=== PATIENT | female | born 1985 | race African-American/Black ===

== ENCOUNTER 2022-02-14 16:06 | Emergency (ER) | payer OTHER ==
[~2022-02-14] VITALS: Ht 165.1 cm; Wt 64.4 kg
[2022-02-14 16:11] VITALS: BP 118/68
[2022-02-14] MEDS ORDERED: BACITRACIN OINTMENT 30GM TUBE TOP ONE (18:30)
[2022-02-14] MEDS ORDERED: LIDOCAINE 1% MDV 20ML VIAL SC ONE (18:30)
[2022-02-14] MEDS ORDERED: UNRESOLVED CLARIFICATION ENTRY XX ONE (18:35)
== END 2022-02-14 19:58 | disposition home or self-care (01) ==
LOC: M ED 16:06
DX: S61.210A Laceration without foreign body of right index finger without damage to nail, initial encounter (principal); S61.216A Laceration without foreign body of right little finger without damage to nail, initial encounter; W26.0XXA Contact with knife, initial encounter

== ENCOUNTER 2022-04-19 06:17 | Day surgery (SDC) | payer OTHER ==
[~2022-04-19] VITALS: Ht 165.1 cm; Wt 63.0 kg
[~2022-04-19 06:17] MED LIST: ACET-897 PO; FOLI1TAB11 PO
[2022-04-19] MEDS ORDERED: LR 1,000 ML IV SCH ×3 (06:20→10:05)
[2022-04-19] MEDS ORDERED: MIDAZOLAM INJ 2MG/2ML VIAL (J2250 PER 1MG) As Ordered ONE (07:07)
[2022-04-19] MEDS ORDERED: ONDANSETRON 4MG 2ML VIAL As Ordered ONE (07:08)
[2022-04-19] MEDS ORDERED: propofoL 200 MG/20 ML VIAL As Ordered ONE (07:08)
[2022-04-19] MEDS ORDERED: LIDOCAINE 2% 100MG/5ML SDV (FOR ANES.) As Ordered ONE (07:08)
[2022-04-19] MEDS ORDERED: KETOROLAC 60MG 2ML VIAL As Ordered ONE (07:08)
[2022-04-19] MEDS ORDERED: fentaNYL 100 MCG/2 ML INJECTION As Ordered ONE (07:09)
[2022-04-19] MEDS ORDERED: LIDOCAINE 1% MDV 20ML VIAL As Ordered ONE (07:17)
[2022-04-19] MEDS ORDERED: SILVER NITRATE APPLICATOR (1 = QTY 10) As Ordered ONE (07:17)
[2022-04-19 07:25] LABS: HEMATOCRIT 39.7 % (36.0-47.0); HEMOGLOBIN 12.8 g/dl (12.0-15.5); MEAN CORPUSCULAR HEMOGLOBIN 30.3 pg (27.0-33.0); MEAN CORPUSCULAR HGB CONC 32.2 g/dl (32.0-36.5); MEAN CORPUSCULAR VOLUME 94.1 fl (80.0-96.0); PLATELET COUNT, AUTOMATED 211 10^3/uL (150-450); RED BLOOD COUNT 4.22 10^6/uL (4.00-5.40); WHITE BLOOD COUNT 4.6 10^3/uL (4.0-10.0)
[2022-04-19 08:08] LABS: HCG, SERUM QUALITATIVE NEGATIVE (NEGATIVE)
[2022-04-19] MEDS ORDERED: fentaNYL 100 MCG/2 ML INJECTION IV PRN (09:10)
[2022-04-19] MEDS ORDERED: METOCLOPRAMIDE INJ 10MG/2ML VIAL IV PRN (09:10)
[2022-04-19] MEDS ORDERED: ONDANSETRON 4MG 2ML VIAL IV PRN (09:10)
[2022-04-19] MEDS ORDERED: oxyCODONE 5MG TAB PO PRN ×2 (09:10→10:10)
[2022-04-19 10:03] VITALS: BP 119/67
== END 2022-04-19 11:25 | disposition home or self-care (01) ==
LOC: M SDC 06:17
PROVIDERS: ATTEND Obstetrics & Gynecology
DX: D25.9 Leiomyoma of uterus, unspecified (principal); N97.9 Female infertility, unspecified
CPT/HCPCS: 36415; 58558; 84703; 85027; 86850; 86900; 86901; 88305; J1100; J1885; J2250; J2405; J3010

== ENCOUNTER → 2022-05-24 | Outpatient (REF) ==
[2022-05-24 13:22] LABS: RSV AMPLIFICATION NEGATIVE (NEGATIVE)
== END ==
LOC: M LABSMTC 11:27
PROVIDERS: ATTEND Family Medicine
DX: Z11.52 Encounter for screening for COVID-19 (principal)

== ENCOUNTER → 2022-06-19 | Outpatient (REF) | LOC: M LABSMTC 11:01 | PROVIDERS: ATTEND Family Medicine | DX: Z11.52 Encounter for screening for COVID-19 (principal) ==

== ENCOUNTER → 2022-06-22 | Outpatient (CLI) | payer OTHER ==
[2022-06-22 11:16] LABS: HEMATOCRIT 37.2 % (36.0-47.0); HEMOGLOBIN 12.2 g/dl (12.0-15.5); MEAN CORPUSCULAR HEMOGLOBIN 30.5 pg (27.0-33.0); MEAN CORPUSCULAR HGB CONC 32.8 g/dl (32.0-36.5); PLATELET COUNT, AUTOMATED 194 10^3/uL (150-450); WHITE BLOOD COUNT 4.5 10^3/uL (4.0-10.0)
[2022-06-22 11:52] LABS: ALBUMIN 3.9 G/DL (3.2-5.2); ALKALINE PHOSPHATASE 48 U/L (46-116); ALT/SGPT 14 U/L (7.0-40); AST/SGOT 17 U/L (<34); BILIRUBIN,TOTAL 0.7 MG/DL (0.3-1.2); BLOOD UREA NITROGEN 11 MG/DL (9-23); CALCIUM LEVEL 9.7 MG/DL (8.5-10.1); CARBON DIOXIDE LEVEL 24 MMOL/L (20-31); CHLORIDE LEVEL 108 MMOL/L (98-107); CREATININE FOR GFR 0.96 MG/DL (0.55-1.30); ESTRADIOL 54.6 PG/ML; FOLLICLE STIMULATING HORMONE 8.9 mIU/ML; GLOMERULAR FILTRATION RATE > 60.0 (>60); GLUCOSE, FASTING 82 MG/DL (60-100); HCG, SERUM QUANTITATIVE < 2.6 MIU/ML (<4.2); LUTEINIZING HORMONE 3.8 mIU/ML; POTASSIUM SERUM 4.2 MMOL/L (3.5-5.1); PROGESTERONE 0.56 NG/ML; SODIUM LEVEL 138 MMOL/L (136-145); TESTOSTERONE 12 NG/DL (14-76); THYROID STIMULATING HORMONE 2.335 uIU/ML (0.55-4.78); TOTAL 25(OH) VITAMIN D 13.1 NG/ML (20.0-100.0); TOTAL PROTEIN 7.4 G/DL (5.7-8.2)
[2022-06-22 12:03] LABS: HEMOGLOBIN A1c 5.3 % (4.0-6.0)
[2022-06-22 12:07] LABS: HEPATITIS B SURFACE ANTIGEN NEGATIVE (NEGATIVE)
[2022-06-22 12:21] LABS: HIV 1&2 SCREEN CENTAUR NEGATIVE (NEGATIVE)
== END ==
LOC: M LAB 10:27
PROVIDERS: ATTEND Obstetrics & Gynecology Reproductive Endocrinology
DX: Z31.41 Encounter for fertility testing (principal)

== ENCOUNTER → 2022-08-24 | Outpatient (CLI) | payer OTHER | LOC: M LAB 15:00 | PROVIDERS: ATTEND Obstetrics & Gynecology Reproductive Endocrinology | DX: Z31.41 Encounter for fertility testing (principal) ==

== ENCOUNTER → 2023-07-19 | Outpatient (REF) | LOC: M EMP 11:23 | PROVIDERS: ATTEND Family Medicine | DX: Z11.52 Encounter for screening for COVID-19 (principal) ==

== ENCOUNTER 2023-10-16 20:53 | Emergency (ER) | payer OTHER ==
[~2023-10-16] VITALS: Ht 165.1 cm; Wt 64.0 kg
[2023-10-16] MEDS: IBUPROFEN 600MG TAB PO ONE (23:40)
[2023-10-16 23:57] VITALS: BP 122/72; TEMP 97.2; O2SAT 99
[2023-10-17] MEDS: ACETAMINOPHEN TAB 650MG DOSE (2X325MG) PO ONE (00:05)
[2023-10-17] MEDS ORDERED: IBUP-1022 PO (01:34)
== END 2023-10-17 02:07 | disposition home or self-care (01) ==
LOC: M ED 20:53
DX: S63.91XA Sprain of unspecified part of right wrist and hand, initial encounter (principal); S53.401A Unspecified sprain of right elbow, initial encounter; S43.401A Unspecified sprain of right shoulder joint, initial encounter; Y04.8XXA Assault by other bodily force, initial encounter; Y92.9 Unspecified place or not applicable; Y93.9 Activity, unspecified; Y99.0 Civilian activity done for income or pay; Z79.899 Other long term (current) drug therapy

== ENCOUNTER → 2024-02-10 | Outpatient (CLI) | payer OTHER ==
[~2024-02-10] MED LIST changes: +IBUP-1022 PO
[2024-02-10 12:05] LABS: LUTEINIZING HORMONE 6.9 mIU/ML
[2024-02-10 12:08] LABS: PROGESTERONE 2.22 NG/ML
[2024-02-10 12:16] LABS: ESTRADIOL 464.5 PG/ML
== END ==
LOC: M RAD 10:26
PROVIDERS: ATTEND Obstetrics & Gynecology Reproductive Endocrinology
DX: Z31.83 Encounter for assisted reproductive fertility procedure cycle (principal); D25.1 Intramural leiomyoma of uterus; N83.201 Unspecified ovarian cyst, right side; N83.202 Unspecified ovarian cyst, left side

== ENCOUNTER → 2024-06-05 | Outpatient (REF) | LOC: M EMP 09:12 | PROVIDERS: ATTEND Family Medicine | DX: Z11.59 Encounter for screening for other viral diseases (principal) ==

== ENCOUNTER 2024-08-19 06:52 | Day surgery (SDC) | payer OTHER ==
[~2024-08-19] VITALS: Ht 165.1 cm; Wt 70.1 kg
[2024-08-19 07:30] LABS: HEMATOCRIT 37.6 % (36.0-47.0); HEMOGLOBIN 12.5 g/dl (12.0-15.5); MEAN CORPUSCULAR HEMOGLOBIN 30.9 pg (27.0-33.0); MEAN CORPUSCULAR HGB CONC 33.2 g/dl (32.0-36.5); MEAN CORPUSCULAR VOLUME 93.1 fl (80.0-96.0); PLATELET COUNT, AUTOMATED 245 10^3/uL (150-450); RED BLOOD COUNT 4.04 10^6/uL (4.00-5.40); WHITE BLOOD COUNT 5.3 10^3/uL (4.0-10.0)
[2024-08-19] MEDS ORDERED: PNV1TABL16 PO (07:36)
[2024-08-19] MEDS ORDERED: SYNT25TA PO (07:36)
[2024-08-19] MEDS: SCOPOLAMINE 1MG TRANSDERMAL PATCH TOP ONE (07:57)
[2024-08-19] MEDS: ACETAMINOPHEN 500 MG TAB PO ONE (07:58)
[2024-08-19] MEDS: LR 1,000 ML IV SCH (07:58)
[2024-08-19] MEDS: DOXYCYCLINE HYCLATE 100MG TABLET PO ONE (07:58)
[2024-08-19] MEDS ORDERED: propofoL 200 MG/20 ML VIAL As Ordered ONE (08:30)
[2024-08-19] MEDS ORDERED: fentaNYL 100 MCG/2 ML INJECTION As Ordered ONE (08:30)
[2024-08-19] MEDS ORDERED: LIDOCAINE 2% 100MG/5ML SDV (FOR ANES.) As Ordered ONE (08:30)
[2024-08-19] MEDS ORDERED: MIDAZOLAM INJ 2MG/2ML VIAL As Ordered ONE (08:30)
[2024-08-19] MEDS ORDERED: ONDANSETRON 4MG 2ML VIAL As Ordered ONE (08:30)
[2024-08-19] MEDS ORDERED: dexmedeTOMIDine (4MCG/ML)200MCG/50ML BTL (PRECEDEX) As Ordered ONE (08:30)
[2024-08-19] MEDS: LIDOCAINE 1% SDV 30ML VIAL As Ordered ONE (08:54)
[2024-08-19] MEDS: METHYLERGONOVINE MALEATE 0.2MG/ML 1ML VIAL As Ordered ONE (09:05)
[2024-08-19] MEDS: SILVER NITRATE APPLICATOR (1 = QTY 10) As Ordered ONE (09:07)
[2024-08-19] MEDS ORDERED: METOCLOPRAMIDE INJ 10MG/2ML VIAL IV PRN (09:20)
[2024-08-19] MEDS ORDERED: fentaNYL 100 MCG/2 ML INJECTION IV PRN (09:20)
[2024-08-19] MEDS ORDERED: LR 1,000 ML IV SCH (09:20)
[2024-08-19] MEDS ORDERED: MEPERIDINE 25 MG/ML 1ML VIAL IV PRN (09:20)
[2024-08-19] MEDS ORDERED: ONDANSETRON 4MG 2ML VIAL IV PRN (09:20)
[2024-08-19] MEDS ORDERED: diphenhydrAMINE 50MG/ML VIAL IV PRN (09:20)
[2024-08-19] MEDS ORDERED: PROMETHAZINE 25MG/ML 1ML VIAL IV PRN (09:50)
[2024-08-19] MEDS ORDERED: oxyCODONE 5MG TAB PO PRN (09:50)
[2024-08-19] MEDS ORDERED: METOCLOPRAMIDE 10MG TAB PO PRN (09:50)
[2024-08-19] MEDS ORDERED: diphenhydrAMINE 25MG CAP PO PRN (09:50)
[2024-08-19 11:01] VITALS: BP 116/69; TEMP 97.6; O2SAT 100
== END 2024-08-19 11:39 | disposition home or self-care (01) ==
LOC: M SDC 06:52
PROVIDERS: ATTEND General Practice
DX: O02.1 Missed abortion (principal); N98.2 Complications of attempted introduction of fertilized ovum following in vitro fertilization
CPT/HCPCS: 36415; 59820; 85027; 86850; 86900; 86901; 88262; 88305; J1100; J2210; J2250; J2405; J3010; S0191

== ENCOUNTER → 2024-09-17 | Outpatient (CLI) | payer OTHER ==
[~2024-09-17] MED LIST changes: +PNV1TABL16 PO; +PROHANCE 279.3MG/ML 15ML VIAL ONE; +SYNT25TA PO
== END ==
LOC: M PLAIMG 08:46
PROVIDERS: ATTEND General Practice
DX: D25.9 Leiomyoma of uterus, unspecified (principal)
CPT/HCPCS: 72197; A9576

== ENCOUNTER → 2024-11-23 | Outpatient (CLI) | payer OTHER ==
[~2024-11-23] MED LIST changes: -PROHANCE 279.3MG/ML 15ML VIAL ONE
[2024-11-23 08:12] LABS: ESTRADIOL 133.2 PG/ML; LUTEINIZING HORMONE 3.0 mIU/ML
[2024-11-23 08:13] LABS: PROGESTERONE 1.03 NG/ML
== END ==
LOC: M LAB 07:17
PROVIDERS: ATTEND Obstetrics & Gynecology Reproductive Endocrinology
DX: Z31.83 Encounter for assisted reproductive fertility procedure cycle (principal)

== ENCOUNTER → 2024-11-25 | Outpatient (CLI) | payer OTHER ==
[2024-11-25 11:45] LABS: ESTRADIOL 352.3 PG/ML; LUTEINIZING HORMONE 2.2 mIU/ML; PROGESTERONE 1.94 NG/ML
== END ==
LOC: M RAD 09:57
PROVIDERS: ATTEND Obstetrics & Gynecology Reproductive Endocrinology
DX: Z31.83 Encounter for assisted reproductive fertility procedure cycle (principal); D25.9 Leiomyoma of uterus, unspecified